=== PATIENT | female | born 1965 | race Caucasian/White ===

== ENCOUNTER → 2017-02-02 | Outpatient (REF) | payer BC ==
[2017-02-02 10:35] LABS: ALBUMIN 3.9 GM/DL (3.2-5.2); ALBUMIN/GLOBULIN RATIO 1.11 (1.00-1.93); ALKALINE PHOSPHATASE 81 U/L (45-117); ALT/SGPT 24 U/L (12-78); ANION GAP 9 MEQ/L (8-16); AST/SGOT 14 U/L (15-37); BILIRUBIN,TOTAL 0.3 MG/DL (0.2-1.0); BLOOD UREA NITROGEN 18 MG/DL (7-18); CALCIUM LEVEL 8.5 MG/DL (8.5-10.1); CARBON DIOXIDE LEVEL 27 MEQ/L (21-32); CHLORIDE LEVEL 104 MEQ/L (98-107); CHOLESTEROL LEVEL 303 MG/DL (<200); CREATININE FOR GFR 0.81 MG/DL (0.55-1.02); GLOMERULAR FILTRATION RATE > 60.0 (>51); GLUCOSE, FASTING 74 MG/DL (70-105); SODIUM LEVEL 140 MEQ/L (136-145); TOTAL PROTEIN 7.4 GM/DL (6.4-8.2); TRIGLYCERIDES LEVEL 346 MG/DL (<150)
== END ==
LOC: M SFHCPLAZ 09:29
PROVIDERS: ATTEND Physician Assistant
DX: E78.4 Other hyperlipidemia (principal); E55.9 Vitamin D deficiency, unspecified; E03.9 Hypothyroidism, unspecified

== ENCOUNTER → 2017-04-30 | Outpatient (REF) | payer BC ==
[2017-04-30 12:13] LABS: ALBUMIN 3.7 GM/DL (3.2-5.2); ALBUMIN/GLOBULIN RATIO 1.19 (1.00-1.93); ALKALINE PHOSPHATASE 69 U/L (45-117); ALT/SGPT 31 U/L (12-78); ANION GAP 8 MEQ/L (8-16); AST/SGOT 16 U/L (15-37); BILIRUBIN,TOTAL 0.3 MG/DL (0.2-1.0); BLOOD UREA NITROGEN 22 MG/DL (7-18); CALCIUM LEVEL 8.5 MG/DL (8.5-10.1); CARBON DIOXIDE LEVEL 25 MEQ/L (21-32); CHLORIDE LEVEL 108 MEQ/L (98-107); CHOLESTEROL LEVEL 185 MG/DL (<200); CREATININE FOR GFR 0.67 MG/DL (0.55-1.02); GLOMERULAR FILTRATION RATE > 60.0 (>51); GLUCOSE, FASTING 83 MG/DL (70-105); POTASSIUM SERUM 4.3 MEQ/L (3.5-5.1); SODIUM LEVEL 141 MEQ/L (136-145); TOTAL PROTEIN 6.8 GM/DL (6.4-8.2); TRIGLYCERIDES LEVEL 132 MG/DL (<150)
== END ==
LOC: M LAB REF 11:20
PROVIDERS: ATTEND Physician Assistant
DX: E78.4 Other hyperlipidemia (principal); E55.9 Vitamin D deficiency, unspecified

== ENCOUNTER → 2017-08-30 | Outpatient (REF) | payer BC ==
[2017-08-30 13:10] LABS: ALBUMIN 3.6 GM/DL (3.2-5.2); ALBUMIN/GLOBULIN RATIO 1.13 (1.00-1.93); ALKALINE PHOSPHATASE 59 U/L (45-117); ALT/SGPT 23 U/L (12-78); ANION GAP 8 MEQ/L (8-16); AST/SGOT 9 U/L (15-37); BILIRUBIN,TOTAL 0.2 MG/DL (0.2-1.0); BLOOD UREA NITROGEN 22 MG/DL (7-18); CALCIUM LEVEL 8.3 MG/DL (8.5-10.1); CARBON DIOXIDE LEVEL 25 MEQ/L (21-32); CHLORIDE LEVEL 106 MEQ/L (98-107); CHOLESTEROL LEVEL 265 MG/DL (<200); CREATININE FOR GFR 0.66 MG/DL (0.55-1.02); GLOMERULAR FILTRATION RATE > 60.0 (>51); GLUCOSE, FASTING 82 MG/DL (70-105); POTASSIUM SERUM 4.4 MEQ/L (3.5-5.1); SODIUM LEVEL 139 MEQ/L (136-145); TOTAL PROTEIN 6.8 GM/DL (6.4-8.2); TRIGLYCERIDES LEVEL 343 MG/DL (<150)
[2017-09-01 00:08] LABS: Lyme Disease IgG/IgM Antibodie <0.91 ISR (0.00-0.90); Lyme Disease IgM Ab Quantitati <0.80 index (0.00-0.79)
== END ==
LOC: M SFHCPLAZ 09:08
PROVIDERS: ATTEND Physician Assistant
DX: E78.4 Other hyperlipidemia (principal); M54.5 Low back pain

== ENCOUNTER → 2017-11-09 | Outpatient (REF) | payer BC ==
[2017-11-09 18:18] LABS: FREE T4 1.11 NG/DL (0.76-1.46)
== END ==
LOC: M SFHCPLAZ 15:39
PROVIDERS: ATTEND Nurse Practitioner Family
DX: E03.9 Hypothyroidism, unspecified (principal)

== ENCOUNTER 2017-12-19 10:02 | Day surgery (SDC) | payer BC ==
[2017-12-19] MEDS ORDERED: NS 1,000 ML IV (11:45)
[2017-12-19] MEDS ORDERED: LIDOCAINE 2% INJ 100 MG/5 ML SDV (FOR ANES.) As Ordered (12:39)
[2017-12-19] MEDS ORDERED: PROPOFOL 200 MG/20 ML VIAL As Ordered (12:39)
== END 2017-12-19 13:52 | disposition home or self-care (01) ==
LOC: M OPP 10:02
DX: Z12.11 Encounter for screening for malignant neoplasm of colon (principal); K64.0 First degree hemorrhoids; D12.6 Benign neoplasm of colon, unspecified; E78.00 Pure hypercholesterolemia, unspecified; E03.9 Hypothyroidism, unspecified; K21.9 Gastro-esophageal reflux disease without esophagitis; R51 Headache; M12.9 Arthropathy, unspecified; L30.8 Other specified dermatitis; L50.8 Other urticaria; Z79.899 Other long term (current) drug therapy; Z88.1 Allergy status to other antibiotic agents; Z91.040 Latex allergy status
CPT/HCPCS: 45385

== ENCOUNTER → 2018-05-01 | Outpatient (REF) | payer BC ==
[2018-05-01 10:39] LABS: ALBUMIN/GLOBULIN RATIO 1.25 (1.00-1.93); ALKALINE PHOSPHATASE 78 U/L (45-117); ALT/SGPT 36 U/L (12-78); ANION GAP 8 MEQ/L (8-16); AST/SGOT 15 U/L (7-37); BILIRUBIN,TOTAL 0.3 MG/DL (0.2-1.0); BLOOD UREA NITROGEN 19 MG/DL (7-18); CALCIUM LEVEL 8.7 MG/DL (8.5-10.1); CARBON DIOXIDE LEVEL 26 MEQ/L (21-32); CHLORIDE LEVEL 108 MEQ/L (98-107); CHOLESTEROL LEVEL 195 MG/DL (<200); CHOLESTEROL RISK RATIO 4.239 (<5); CREATININE FOR GFR 0.77 MG/DL (0.55-1.30); GLOMERULAR FILTRATION RATE > 60.0 (>51); GLUCOSE, FASTING 75 MG/DL (70-100); HDL CHOLESTEROL 46 MG/DL (>40); LDL CHOLESTEROL 105.6 MG/DL (<100); NON-HDL-C 149 MG/DL; SODIUM LEVEL 142 MEQ/L (136-145); THYROID STIMULATING HORMONE 0.456 uIU/ML (0.358-3.740); TOTAL PROTEIN 7.2 GM/DL (6.4-8.2); TRIGLYCERIDES LEVEL 217 MG/DL (<150)
== END ==
LOC: M SFHCPLAZ 09:50
DX: E78.4 Other hyperlipidemia (principal); E03.9 Hypothyroidism, unspecified
CPT/HCPCS: 84443

== ENCOUNTER → 2018-07-31 | Outpatient (REF) | payer BC ==
[2018-08-03 14:10] LABS: HPV HYBRID CAPTURE II Negative (Negative)
== END ==
LOC: M SFHCWAGY 15:43
DX: Z12.4 Encounter for screening for malignant neoplasm of cervix (principal)
CPT/HCPCS: G0123

== ENCOUNTER → 2018-07-31 | Outpatient (CLI) | payer BC | LOC: M WHC 14:52 | DX: Z12.31 Encounter for screening mammogram for malignant neoplasm of breast (principal); N60.31 Fibrosclerosis of right breast; N60.32 Fibrosclerosis of left breast | CPT/HCPCS: 77067 ==

== ENCOUNTER → 2018-11-04 | Outpatient (REF) | payer BC | LOC: M SFHCPLAZ 16:09 | DX: Z53.9 Procedure and treatment not carried out, unspecified reason (principal); E03.9 Hypothyroidism, unspecified; E78.49 Other hyperlipidemia ==

== ENCOUNTER → 2018-11-15 | Outpatient (REF) | payer BC ==
[~2018-11-15] MED LIST: ATOR1TAB21 PO; FLUTISP; HYDR-3363 PO; IBUP200T45 PO; LEVO100T5 PO; PROAAER10 INH
[2018-11-15 13:12] LABS: ALBUMIN 3.5 GM/DL (3.2-5.2); ALT/SGPT 33 U/L (12-78); BILIRUBIN,TOTAL 0.2 MG/DL (0.2-1.0); BLOOD UREA NITROGEN 21 MG/DL (7-18); CALCIUM LEVEL 8.5 MG/DL (8.5-10.1); CARBON DIOXIDE LEVEL 23 MEQ/L (21-32); CHLORIDE LEVEL 104 MEQ/L (98-107); CREATININE FOR GFR 0.88 MG/DL (0.55-1.30); FREE T4 1.06 NG/DL (0.76-1.46); GLOMERULAR FILTRATION RATE > 60.0 (>51); GLUCOSE, FASTING 80 MG/DL (70-100); POTASSIUM SERUM 3.9 MEQ/L (3.5-5.1); SODIUM LEVEL 138 MEQ/L (136-145)
== END ==
LOC: M LABDRWAD 12:13
PROVIDERS: ATTEND Nurse Practitioner Family
DX: E03.9 Hypothyroidism, unspecified (principal)

== ENCOUNTER → 2019-06-21 | Outpatient (REF) | payer BC ==
[2019-06-21 09:13] LABS: ALBUMIN 3.7 GM/DL (3.2-5.2); ALT/SGPT 27 U/L (12-78); BILIRUBIN,TOTAL 0.2 MG/DL (0.2-1.0); BLOOD UREA NITROGEN 25 MG/DL (7-18); CALCIUM LEVEL 8.8 MG/DL (8.5-10.1); CARBON DIOXIDE LEVEL 31 MEQ/L (21-32); CHLORIDE LEVEL 104 MEQ/L (98-107); CHOLESTEROL LEVEL 239 MG/DL (<200); CHOLESTEROL RISK RATIO 5.829 (<5); CREATININE FOR GFR 0.82 MG/DL (0.55-1.30); FREE T4 1.18 NG/DL (0.76-1.46); GLOMERULAR FILTRATION RATE > 60.0 (>51); GLUCOSE, FASTING 79 MG/DL (70-100); HDL CHOLESTEROL 41 MG/DL (>40); NON-HDL-C 198 MG/DL; POTASSIUM SERUM 4.1 MEQ/L (3.5-5.1); SODIUM LEVEL 140 MEQ/L (136-145); TOTAL PROTEIN 7.4 GM/DL (6.4-8.2); TRIGLYCERIDES LEVEL 445 MG/DL (<150)
== END ==
LOC: M LAB REF 08:47
PROVIDERS: ATTEND Nurse Practitioner Family
DX: E78.49 Other hyperlipidemia (principal); E03.9 Hypothyroidism, unspecified

== ENCOUNTER → 2019-08-01 | Outpatient (REF) | payer BC | LOC: M LAB REF 10:31 | PROVIDERS: ATTEND Nurse Practitioner Family | DX: E03.9 Hypothyroidism, unspecified (principal) ==

== ENCOUNTER → 2019-12-24 | Outpatient (REF) | payer BC ==
[2019-12-24 15:59] LABS: HEMATOCRIT 34.1 % (36.0-47.0); HEMOGLOBIN 10.6 g/dl (12.0-15.5); MEAN CORPUSCULAR HEMOGLOBIN 25.1 pg (27.0-33.0); MEAN CORPUSCULAR HGB CONC 31.1 g/dl (32.0-36.5); MEAN CORPUSCULAR VOLUME 80.8 fl (80.0-96.0); PLATELET COUNT, AUTOMATED 285 10^3/uL (150-450); RED BLOOD COUNT 4.22 10^6/uL (4.00-5.40); WHITE BLOOD COUNT 6.2 10^3/uL (4.0-10.0)
[2019-12-24 16:25] LABS: CREATININE FOR GFR 1.1 MG/DL (0.55-1.30); GLOMERULAR FILTRATION RATE 55.1 (>51)
== END ==
LOC: M SFHCPLAZ 14:14
PROVIDERS: ATTEND Family Medicine
DX: Z01.818 Encounter for other preprocedural examination (principal)

== ENCOUNTER → 2019-12-29 | Outpatient (CLI) | payer BC ==
[~2019-12-29] MED LIST changes: +HYDR-3713 PO; +OMEP40CA97 PO
[2019-12-29 12:25] LABS: HEMATOCRIT 37.7 % (36.0-47.0); HEMOGLOBIN 11.6 g/dl (12.0-15.5); MEAN CORPUSCULAR HEMOGLOBIN 24.9 pg (27.0-33.0); MEAN CORPUSCULAR HGB CONC 30.8 g/dl (32.0-36.5); MEAN CORPUSCULAR VOLUME 80.9 fl (80.0-96.0); PLATELET COUNT, AUTOMATED 302 10^3/uL (150-450); RED BLOOD COUNT 4.66 10^6/uL (4.00-5.40); WHITE BLOOD COUNT 5.6 10^3/uL (4.0-10.0)
[2019-12-29 12:26] LABS: HEMATOCRIT 38.3 % (36.0-47.0)
[2019-12-29 12:30] LABS: BLOOD UREA NITROGEN 19 MG/DL (7-18); CALCIUM LEVEL 9.5 MG/DL (8.5-10.1); CARBON DIOXIDE LEVEL 31 MEQ/L (21-32); CHLORIDE LEVEL 106 MEQ/L (98-107); CREATININE FOR GFR 0.74 MG/DL (0.55-1.30); FERRITIN 7 NG/ML (8-252); GLOMERULAR FILTRATION RATE > 60.0 (>51); GLUCOSE, FASTING 94 MG/DL (70-100); IRON (FE) 30 UG/DL (50-170); PERCENT SATURATION 6.1 % (13.2-45.0); POTASSIUM SERUM 4.3 MEQ/L (3.5-5.1); SODIUM LEVEL 142 MEQ/L (136-145); TOTAL IRON BINDING CAPACITY 490 UG/DL (250-450)
[2019-12-29 12:36] LABS: VITAMIN B12 LEVEL 852 PG/ML (247-911)
== END ==
LOC: M PLALAB 09:53
PROVIDERS: ATTEND Family Medicine
DX: D64.9 Anemia, unspecified (principal); R94.4 Abnormal results of kidney function studies

== ENCOUNTER 2019-12-31 05:51 | Day surgery (SDC) | payer BC ==
[~2019-12-31] VITALS: Ht 162.6 cm; Wt 74.8 kg
[~2019-12-31 05:51] MED LIST changes: -HYDR-3713 PO; -OMEP40CA97 PO
[2019-12-31] MEDS ORDERED: ceFAZolin SOD 2 GM in IV 1 EA IV ONE (06:00)
[2019-12-31] MEDS ORDERED: LIDOCAINE 1% MDV 20ML VIAL SQ PRN (06:00)
[2019-12-31] MEDS ORDERED: LR 1,000 ML IV ONE (06:00)
[2019-12-31] MEDS ORDERED: OMEP40CA97 PO (07:04)
[2019-12-31] MEDS ORDERED: LIDOCAINE 1% MDV 20ML VIAL As Ordered ONE (07:12)
[2019-12-31] MEDS ORDERED: dexameTHASONE 4 MG/ML 1ML VIAL (J1100) As Ordered ONE ×3 (07:12→08:02)
[2019-12-31] MEDS ORDERED: BUPIVACAINE HCL 0.5% 10 ML VIAL As Ordered ONE (07:12)
[2019-12-31] MEDS ORDERED: TRIAMCINOLONE ACETONIDE SUSP 40 MG/ML VIAL (J3301) As Ordered ONE ×2 (07:42→07:43)
[2019-12-31] MEDS ORDERED: LIDOCAINE 2% INJ 100 MG/5 ML SDV (FOR ANES.) As Ordered ONE (08:02)
[2019-12-31] MEDS ORDERED: ONDANSETRON 4MG/2ML VIAL (J2405) As Ordered ONE (08:02)
[2019-12-31] MEDS ORDERED: MIDAZOLAM INJ 2 MG/2 ML VIAL (J2250) As Ordered ONE (08:02)
[2019-12-31] MEDS ORDERED: fentaNYL 100 MCG/2 ML INJECTION (J3010) As Ordered ONE (08:02)
[2019-12-31] MEDS ORDERED: KETOROLAC 60 MG/2 ML VIAL (J1885) As Ordered ONE (08:02)
[2019-12-31] MEDS ORDERED: propofoL 200 MG/20 ML VIAL As Ordered ONE ×2 (08:02→08:33)
[2019-12-31] MEDS ORDERED: HYDR-3713 PO (08:49)
[2019-12-31 09:40] VITALS: BP 123/58
--- NOTE | 2019-12-31 11:10 | RO ---
DATE OF SURGERY: 12/31/2019 SURGEON: Otis Root DPM ROUTING MACHINE OPERATOR: None. PREOPERATIVE DIAGNOSES: Right foot bunion hallux valgus and plantar fasciitis. POSTOPERATIVE DIAGNOSES: Right foot bunion hallux valgus and plantar fasciitis. PROCEDURE: Right foot bunionectomy and first metatarsal osteotomy, Drew osteotomy and bilateral heel injections. ANESTHESIA: Monitored anesthesia care with preop injection of 16 mL of 1:1 mixture of 1% lidocaine plain, 0.5% Marcaine plain. ESTIMATED BLOOD LOSS: Minimal. MATERIALS: Arthrex 3.5 headless compression screw. Arthrex DynaNite staple. #3-0 and #4-0 Vicryl, #4-0 nylon. INJECTABLES: 2 mL Decadron 4 mg/mL and 2 mL of Kenalog 40. COMPLICATIONS: None. CONDITION: Stable. Honey Stringer is a 54-year-old female who presents to [facility] with complaints of painful bunion and bilateral heel pain. She presents today for surgical correction. The patient's site and side were identified and marked in the preop holding area. Consent was reviewed and obtained. All risks, complications and alternatives to the procedure were explained to the patient in detail and all questions were answered. PROCEDURE: Patient was brought to the operating room and placed operating room table in supine position. Monitored anesthesia care was delivered by the anesthesia team. Preop injection of 16 mL of 1:1 mixture of 1% lidocaine plain and 0.5% Marcaine plain were injected to the right foot. The right foot was prepped and draped in a normal sterile fashion. Tourniquet was applied to the right ankle and inflated to 215 mmHg. A dorsal incision was drawn and carried through with a #15 blade. Dissection was carried down and the first metatarsal phalangeal joint capsule was identified. Bovie was used to cauterize small bleeding vessels along the way. A T-capsulotomy was performed exposing the metatarsal head. Over this, a lateral release was performed releasing the adductor tendon, lateral capsule and sesamoidal ligaments. McGlamry elevator was used to release the plantar structures. Following this, the medial head of the metatarsal bone was resected with saggital saw and osteotomy was performed of the metatarsal head transposing it laterally. This was fixated with an Arthrex 3.5 headless compression screw. Remaining bone ledge was removed with sagittal saw and smoothed with a rasp. Site was irrigated with normal saline. Attention was then paid to the proximal phalanx. A small wedge of cortex was removed from the medial cortex and the toe was fixated with an Arthrex DynaNite staple effectively placing the toe into a more medial position. The site was then irrigated with normal saline. A small wedge of capsule was removed from the medial capsule. A capsular repair was then performed with #3-0 Vicryl, subcutaneous was closed with #4-0 Vicryl and the skin was closed with #4-0 nylon. Following this, heel injections were performed putting 1 mL of Decadron and 1 mL of Kenalog into both heels. Sterile dressing was applied, tourniquet was deflated and the patient was brought to the postanesthesia care unit (PACU) with vital signs stable and neurovascular status intact. She will be partial weightbearing. She will followup in the office in two days.
== END 2019-12-31 10:23 | disposition home or self-care (01) ==
LOC: M SDC 05:51
PROVIDERS: ATTEND Podiatrist Foot & Ankle Surgery
DX: M20.11 Hallux valgus (acquired), right foot (principal); M72.2 Plantar fascial fibromatosis; E03.9 Hypothyroidism, unspecified; E78.5 Hyperlipidemia, unspecified; Z79.899 Other long term (current) drug therapy; Z88.1 Allergy status to other antibiotic agents; Z87.891 Personal history of nicotine dependence
CPT/HCPCS: 20550; 28296; 28298; 88300; 97116; C1713; J0690; J1100; J1885; J2250; J2405; J3010; J3301

== ENCOUNTER → 2020-05-01 | Outpatient (CLI) | payer BC ==
[~2020-05-01] MED LIST changes: +HYDR-3713 PO; +OMEP40CA97 PO
== END ==
LOC: M LABSMTC 08:08
PROVIDERS: ATTEND Anesthesiology
DX: Z01.818 Encounter for other preprocedural examination (principal); Z11.59 Encounter for screening for other viral diseases
CPT/HCPCS: C9803; U0003

== ENCOUNTER 2020-05-04 06:54 | Day surgery (SDC) | payer BC ==
[~2020-05-04] VITALS: Ht 162.6 cm; Wt 73.0 kg
[2020-05-04] MEDS ORDERED: NS 1,000 ML IV ONE (07:00)
[2020-05-04] MEDS ORDERED: LIDOCAINE 2% MDV 20ML VIAL As Ordered ONE (07:24)
[2020-05-04] MEDS ORDERED: propofoL 200 MG/20 ML VIAL As Ordered ONE (07:24)
[2020-05-04] MEDS ORDERED: fentaNYL 100 MCG/2 ML INJECTION (J3010) As Ordered ONE (07:24)
--- NOTE | 2020-05-04 07:49 | ROOR ---
Patient Name: Honey Stringer Procedure Date: 05/04/2020 7:31 AM Date of : 1965 Age: 54 Room: [facility] Gender: Female Note Status: Finalized Procedure: Upper Endoscopy + Biopsies Indications: Iron deficiency anemia Providers: Suman Whitten MD Referring MD: Mary Morales MD Requesting Provider: Medicines: Monitored Anesthesia Care Complications: No immediate complications. Procedure: Pre-Anesthesia Assessment: - The heart rate, respiratory rate, oxygen saturations, blood pressure, adequacy of pulmonary ventilation, and response to care were monitored throughout the procedure. The Endoscope was introduced through the mouth, and advanced to the second part of duodenum. The upper GI endoscopy was accomplished without difficulty. The patient tolerated the procedure well. Findings: The Z-line was variable and was found 40 cm from the incisors. Multiple biopsies were obtained with cold forceps for evaluation to rule out Cornell's Esophagus randomly at the gastroesophageal junction. A small hiatal hernia was present. No other significant abnormalities were identified in a careful examination of the stomach. Biopsies were taken with a cold forceps in the gastric antrum for Helicobacter pylori testing. The exam of the duodenum was otherwise normal. Biopsies for histology were taken with a cold forceps in the first portion of the duodenum for evaluation of celiac disease. The exam was otherwise without abnormality. Impression: - Z-line variable, 40 cm from the incisors. - Small hiatal hernia. - The examination was otherwise normal. - Multiple biopsies were obtained at the gastroesophageal junction. - Biopsies were taken with a cold forceps for Helicobacter pylori testing. - Biopsies were taken with a cold forceps for evaluation of celiac disease. - The examination was otherwise normal. Recommendation: - Patient has a contact number available for emergencies. The signs and symptoms of potential delayed complications were discussed with the patient. Return to normal activities tomorrow. Written discharge instructions were provided to the patient. - High fiber diet. - Discharge patient to home. - Continue present medications. - Await pathology results. - Telephone GI clinic for pathology results in 1 week. - Return to referring physician. - The findings and recommendations were discussed with the patient's family. Suman Whitten MD Suman Whitten MD 05/04/2020 7:49:41 AM Electronically signed by Suman Whitten MD Number of Addenda: 0 Note Initiated On: 05/04/2020 7:31 AM Estimated Blood Loss: Estimated blood loss: none.
[2020-05-04] MEDS ORDERED: LIDOCAINE 2% 100MG/5ML SDV (FOR ANES.) As Ordered ONE (08:04)
--- NOTE | 2020-05-04 08:08 | ROOR ---
Patient Name: Honey Stringer Procedure Date: 05/04/2020 7:32 AM Date of : 1965 Age: 54 Room: [facility] Gender: Female Note Status: Finalized Procedure: Total Colonoscopy to Cecum + ileoscopy Indications: Unexplained iron deficiency anemia Providers: Suman Whitten MD Referring MD: Mary Morales MD Requesting Provider: Medicines: Monitored Anesthesia Care Complications: No immediate complications. Procedure: Pre-Anesthesia Assessment: - The heart rate, respiratory rate, oxygen saturations, blood pressure, adequacy of pulmonary ventilation, and response to care were monitored throughout the procedure. The Colonoscope was introduced through the anus and advanced to the cecum, identified by appendiceal orifice and ileocecal valve. The colonoscopy was performed without difficulty. The patient tolerated the procedure well. The quality of the bowel preparation was excellent. Findings: The perianal and digital rectal examinations were normal. Internal hemorrhoids were found during retroflexion. The hemorrhoids were small and Grade I (internal hemorrhoids that do not prolapse). Scattered small-mouthed diverticula were found in the recto-sigmoid colon, sigmoid colon and descending colon. The exam was otherwise without abnormality on direct and retroflexion views. The terminal ileum appeared normal. Impression: - Internal hemorrhoids. - Diverticulosis in the recto-sigmoid colon, in the sigmoid colon and in the descending colon. - The examination was otherwise normal on direct and retroflexion views. - The examined portion of the ileum was normal. - No specimens collected. - The exam was otherwise normal to the cecum. Recommendation: - Patient has a contact number available for emergencies. The signs and symptoms of potential delayed complications were discussed with the patient. Return to normal activities tomorrow. Written discharge instructions were provided to the patient. - High fiber diet. - Discharge patient to home. - Continue present medications. - Repeat colonoscopy in 10 years for screening purposes. - Return to referring physician. - The findings and recommendations were discussed with the patient's family. Suman Whitten MD Suman Whitten MD 05/04/2020 8:07:54 AM Electronically signed by Suman Whitten MD Number of Addenda: 0 Note Initiated On: 05/04/2020 7:32 AM Estimated Blood Loss: Estimated blood loss: none.
[2020-05-04 08:34] VITALS: BP 116/66
== END 2020-05-04 08:30 | disposition home or self-care (01) ==
LOC: M OPP 06:54
PROVIDERS: ATTEND Internal Medicine Gastroenterology
DX: K57.30 Diverticulosis of large intestine without perforation or abscess without bleeding (principal); K64.0 First degree hemorrhoids; D50.9 Iron deficiency anemia, unspecified; K22.8 Other specified diseases of esophagus; K44.9 Diaphragmatic hernia without obstruction or gangrene
CPT/HCPCS: 43239; 45378; 88305; J3010

== ENCOUNTER → 2020-05-25 | Outpatient (REF) | payer BC ==
[2020-05-25 11:57] LABS: HEMATOCRIT 39.6 % (36.0-47.0); HEMOGLOBIN 12.1 g/dl (12.0-15.5); MEAN CORPUSCULAR HEMOGLOBIN 25.6 pg (27.0-33.0); MEAN CORPUSCULAR HGB CONC 30.6 g/dl (32.0-36.5); MEAN CORPUSCULAR VOLUME 83.9 fl (80.0-96.0); PLATELET COUNT, AUTOMATED 296 10^3/uL (150-450); RED BLOOD COUNT 4.72 10^6/uL (4.00-5.40); WHITE BLOOD COUNT 5.5 10^3/uL (4.0-10.0)
[2020-05-25 12:45] LABS: ALBUMIN 3.9 GM/DL (3.2-5.2); ALT/SGPT 43 U/L (12-78); BILIRUBIN,TOTAL 0.3 MG/DL (0.2-1.0); BLOOD UREA NITROGEN 20 MG/DL (7-18); CALCIUM LEVEL 9.5 MG/DL (8.5-10.1); CARBON DIOXIDE LEVEL 28 MEQ/L (21-32); CHLORIDE LEVEL 105 MEQ/L (98-107); CHOLESTEROL LEVEL 216 MG/DL (<200); CHOLESTEROL RISK RATIO 4.235 (<5); CREATININE FOR GFR 0.74 MG/DL (0.55-1.30); FERRITIN 9 NG/ML (8-252); GLOMERULAR FILTRATION RATE > 60.0 (>51); GLUCOSE, FASTING 95 MG/DL (70-100); HDL CHOLESTEROL 51 MG/DL (>40); IRON (FE) 44 UG/DL (50-170); LDL CHOLESTEROL 138 MG/DL (<100); NON-HDL-C 165 MG/DL; PERCENT SATURATION 9.1 % (13.2-45.0); POTASSIUM SERUM 4.7 MEQ/L (3.5-5.1); SODIUM LEVEL 137 MEQ/L (136-145); THYROID STIMULATING HORMONE 0.338 uIU/ML (0.358-3.740); TOTAL IRON BINDING CAPACITY 481 UG/DL (250-450); TOTAL PROTEIN 7.4 GM/DL (6.4-8.2); TRIGLYCERIDES LEVEL 137 MG/DL (<150)
== END ==
LOC: M SFHCPLAZ 09:55
PROVIDERS: ATTEND Family Medicine
DX: Z86.2 Personal history of diseases of the blood and blood-forming organs and certain disorders involving the immune mechanism (principal); E78.2 Mixed hyperlipidemia; E03.9 Hypothyroidism, unspecified

== ENCOUNTER → 2020-10-12 | Outpatient (CLI) | payer BC | LOC: M LABSMTC 12:01 | PROVIDERS: ATTEND Family Medicine | DX: Z20.828 Contact with and (suspected) exposure to other viral communicable diseases (principal) ==

== ENCOUNTER → 2020-11-23 | Outpatient (REF) | payer BC ==
[2020-11-23 14:52] LABS: CHOLESTEROL RISK RATIO 7.666 (<5); THYROID STIMULATING HORMONE 1.68 uIU/ML (0.358-3.740)
== END ==
LOC: M PLALAB 09:21
PROVIDERS: ATTEND Family Medicine
DX: E78.2 Mixed hyperlipidemia (principal); E03.9 Hypothyroidism, unspecified

== ENCOUNTER → 2020-12-05 | Outpatient (REF) | payer SELFPAY | LOC: M LABSMTC 11:02 → EDSTATUS 11:15 | PROVIDERS: ATTEND Pediatrics | DX: Z20.822 Contact with and (suspected) exposure to COVID-19 (principal) ==

== ENCOUNTER → 2020-12-09 | Outpatient (REF) | payer SELFPAY | LOC: M LABSMTC 09:46 → EDSTATUS 09:50 | PROVIDERS: ATTEND Pediatrics | DX: Z20.822 Contact with and (suspected) exposure to COVID-19 (principal) ==

== ENCOUNTER → 2020-12-20 | Outpatient (REF) | payer BC ==
[2020-12-20 18:01] LABS: HEMATOCRIT 35.4 % (36.0-47.0); HEMOGLOBIN 11.8 g/dl (12.0-15.5); MEAN CORPUSCULAR HEMOGLOBIN 28.4 pg (27.0-33.0); MEAN CORPUSCULAR HGB CONC 33.3 g/dl (32.0-36.5); MEAN CORPUSCULAR VOLUME 85.1 fl (80.0-96.0); PLATELET COUNT, AUTOMATED 243 10^3/uL (150-450); RED BLOOD COUNT 4.16 10^6/uL (4.00-5.40); WHITE BLOOD COUNT 6.4 10^3/uL (4.0-10.0)
[2020-12-20 18:35] LABS: BLOOD UREA NITROGEN 24 MG/DL (7-18); CALCIUM LEVEL 9.1 MG/DL (8.5-10.1); CARBON DIOXIDE LEVEL 28 MEQ/L (21-32); CHLORIDE LEVEL 106 MEQ/L (98-107); CREATININE FOR GFR 0.96 MG/DL (0.55-1.30); FERRITIN 24 NG/ML (8-252); GLOMERULAR FILTRATION RATE > 60.0 (>51); GLUCOSE, FASTING 89 MG/DL (70-100); IRON (FE) 118 UG/DL (50-170); PERCENT SATURATION 30.8 % (13.2-45.0); POTASSIUM SERUM 3.9 MEQ/L (3.5-5.1); SODIUM LEVEL 138 MEQ/L (136-145); TOTAL IRON BINDING CAPACITY 383 UG/DL (250-450)
== END ==
LOC: M SFHCPLAZ 14:38
PROVIDERS: ATTEND Family Medicine
DX: Z01.818 Encounter for other preprocedural examination (principal); Z86.2 Personal history of diseases of the blood and blood-forming organs and certain disorders involving the immune mechanism

== ENCOUNTER → 2021-01-11 | Outpatient (CLI) | payer BC | LOC: M LABSMTC 08:00 | PROVIDERS: ATTEND Anesthesiology | DX: Z01.812 Encounter for preprocedural laboratory examination (principal); Z20.822 Contact with and (suspected) exposure to COVID-19 ==

== ENCOUNTER 2021-01-12 09:14 | Day surgery (SDC) | payer BC ==
[~2021-01-12] VITALS: Ht 162.6 cm; Wt 77.1 kg
[~2021-01-12 09:14] MED LIST changes: +BUPIVACAINE HCL 0.5% 10ML VIAL As Ordered ONE; +LIDOCAINE 1% MDV 20ML VIAL As Ordered ONE; +LR 1,000 ML IV ONE; +ceFAZolin SOD 2 GM in IV 1 EA IV ONE; +dexameTHASONE 4 MG/ML 1ML VIAL (J1100 PER 1MG) As Ordered ONE
[2021-01-12] MEDS ORDERED: LIDOCAINE 2% 100MG/5ML SDV (FOR ANES.) As Ordered ONE (10:48)
[2021-01-12] MEDS ORDERED: ONDANSETRON 4MG/2ML VIAL As Ordered ONE (10:48)
[2021-01-12] MEDS ORDERED: propofoL 500 MG/50 ML VIAL As Ordered ONE (10:48)
[2021-01-12] MEDS ORDERED: fentaNYL 100 MCG/2 ML INJECTION (J3010) As Ordered ONE (10:49)
[2021-01-12] MEDS ORDERED: MIDAZOLAM INJ 2MG/2ML VIAL (J2250 PER 1MG) As Ordered ONE (10:49)
[2021-01-12] MEDS ORDERED: BUPIVACAINE HCL 0.5% 10ML VIAL As Ordered ONE (11:38)
[2021-01-12] MEDS ORDERED: PHENYLephrine 500MCG 5ML (100MCG/ML) SYRINGE As Ordered ONE ×2 (12:01→12:36)
[2021-01-12] MEDS ORDERED: propofoL 200 MG/20 ML VIAL As Ordered ONE (12:48)
[2021-01-12] MEDS ORDERED: ONDANSETRON 4MG/2ML VIAL IV PRN (13:45)
[2021-01-12] MEDS ORDERED: LR 1,000 ML IV SCH (13:45)
[2021-01-12] MEDS: oxyCODONE 5MG TAB PO PRN ×2 (13:45→14:31)
[2021-01-12] MEDS ORDERED: fentaNYL 100 MCG/2 ML INJECTION (J3010) IV PRN (13:45)
[2021-01-12] MEDS ORDERED: HYDROMORPHONE HCL 0.5 MG/ 0.5 ML SYRINGE (J1170 PER 1) IV PRN (13:45)
--- NOTE | 2021-01-12 13:45 | RO ---
OPERATIVE NOTE DATE OF OPERATION: 01/12/2021 PREOPERATIVE DIAGNOSIS: Bilateral plantar fasciitis and right foot painful retained hardware. POSTOPERATIVE DIAGNOSIS: Bilateral plantar fasciitis and right foot painful retained hardware. PROCEDURE: Bilateral endoscopic plantar fascial release; right foot hardware removal. SURGEON: Otis Root DPM BUSINESS ADMINISTRATION TEACHER: None. ANESTHESIA: Monitored anesthesia care, preop injection of 30 mL of 1:1 mix of 1% Lidocaine plain and 0.5% Marcaine plain. ESTIMATED BLOOD LOSS: Minimal. MATERIALS: 3-0 and 4-0 Vicryl, 4-0 nylon. INJECTABLES: None. COMPLICATIONS: None. CONDITION: Stable. INDICATIONS: Honey Stringer is a 55-year-old female with chronic plantar fasciitis which has been resistant to conservative treatment as well as painful retained hardware following a bunion procedure. She presents today for surgical correction. The patient's site and side were identified and marked in preoperative area. Consent was reviewed and obtained. Risks, complications and alternatives to the procedure explained to the patient in detail and all questions were answered. DESCRIPTION OF PROCEDURE: The patient was brought to the operating room and placed on the operating table in supine position. Monitored anesthesia care was delivered by the anesthesia team. Preop injection of 30 mL of 1:1 mix of 1% Lidocaine plain and 0.5% Marcaine plain was injected in both feet. Both feet were prepped and draped in normal sterile fashion. Tourniquets were applied to both ankles and inflated to 250 mmHg. Attention was first paid to the right bunion. Dorsal incision was made over the previous scar and carried down with #15 blade. Dissection was carried down to the bone and the screw and staple were identified. The staple was removed using pliers and the screw was removed using the Arthrex screwdriver. Some prominent bone was smoothed using sagittal saw and rasp and this site was irrigated with normal saline. Closure was performed with 3-0 and 4-0 Vicryl and 4-0 nylon. Attention was paid to the heels. A medial portal on each heel was created with #15 blade. The inferior margin of the plantar fascia was identified and the trocar and cannula were inserted. Narrow portal was created on the lateral aspect of the heel. The camera was inserted. Plantar fascia was visualized on both feet and under visualization the medial two-thirds of the plantar fascia were released using the plantar fascia blade leaving the lateral one-third intact. The sites were irrigated with normal saline. The incisions were repaired with 4-0 nylon following the camera and trocar removal. Sterile dressings were applied. Tourniquets were deflated. The patient was taken to PACU, vital signs stable, neurovascular status intact. She will be partial weightbearing. She will follow up in the office in two days.
[2021-01-12 13:50] VITALS: BP 130/74
--- NOTE | 2021-01-13 15:49 | ECGEPIP ---
[facility] Test Date: 2021-01-12 Pat Name: SHAI GAYLE Department: Room: - Gender: Female Senior Technical Business Analyst: rf : 1965 Requested By: NIDA DAWKINS Order Number: [id number] Reading MD: Larry Colvin Measurements Intervals [place] Rate: 68 P: 34 DC: 164 QRS: 31 QRSD: 78 T: 7 QT: 410 QTc: 435 Interpretive Statements Normal sinus rhythm Normal EKG Comparison tracing not on file Electronically Signed on 01-13-2021 15:49:29 EST by Larry Colvin
== END 2021-01-12 15:05 | disposition home or self-care (01) ==
LOC: M SDC 09:14
PROVIDERS: ATTEND Podiatrist Foot & Ankle Surgery
DX: M72.2 Plantar fascial fibromatosis (principal); E03.9 Hypothyroidism, unspecified; E78.2 Mixed hyperlipidemia; J45.909 Unspecified asthma, uncomplicated; K21.9 Gastro-esophageal reflux disease without esophagitis; R06.83 Snoring; Z79.899 Other long term (current) drug therapy; Z86.2 Personal history of diseases of the blood and blood-forming organs and certain disorders involving the immune mechanism; Z87.891 Personal history of nicotine dependence; Z88.1 Allergy status to other antibiotic agents; Z98.51 Tubal ligation status
CPT/HCPCS: 20680; 29893; 88300; 93005; J0690; J2250; J2370; J2405; J3010

== ENCOUNTER → 2021-07-11 | Outpatient (CLI) | payer BC ==
[~2021-07-11] MED LIST changes: -BUPIVACAINE HCL 0.5% 10ML VIAL As Ordered ONE; -LIDOCAINE 1% MDV 20ML VIAL As Ordered ONE; -LR 1,000 ML IV ONE; +OMEP40CA4 PO; -OMEP40CA97 PO; -ceFAZolin SOD 2 GM in IV 1 EA IV ONE; -dexameTHASONE 4 MG/ML 1ML VIAL (J1100 PER 1MG) As Ordered ONE
--- NOTE | 2021-07-11 16:08 | REPMRS ---
Patient History The patient states she had a clinical breast exam in June 2021. Patient is postmenopausal. Family history of ovarian cancer in maternal grandmother. Benign stereotactic core biopsy of the left breast, March 30, 2008. No Hormone Replacement Therapy Patient states no breast complaints today. Patient has signed MRS History Sheet. Digital Woman Screen Mammo: July 11, 2021 - Exam #: [id number] Bilateral CC and MLO view(s) were taken. Technologist: Michelle Li, Technologist Prior study comparison: July 31, 2018, bilateral digital woman screen mammo performed at [facility]. August 30, 2016, digital woman screen mammo performed at [facility]. FINDINGS: There are scattered fibroglandular densities. Screening. Digital screening (2D) mammography was performed bilaterally in the CC and MLO projections. Additionally, breast tomosynthesis (3D mammography) was performed bilaterally in the CC and MLO projections. Todays exam was compared to the prior exam/exams. By history, the patient has no complaints of a palpable breast abnormality or other significant breast complaints. The breasts are unchanged in size and shape. There are no raysa-soft tissue densities or spiculated masses. There is no internal architectural distortion. There are no suspicious raysa-calcific clusters. Skin thickening or nipple retraction is not present. IMPRESSION: BI-RADS Category 2- Benign Findings. There is no evidence of malignant alteration of the breasts. Followup examination recommended in one year. The Volpara volumetric breast density category is B, there are scattered areas of fibroglandular densities. This mammogram was read with the assistance of [employer],an FDA approved computer aided detection system for mammography. The lifetime Tyrer-Cuzick score is 8 % Negative x-ray reports should not delay surgical consultation if a dominant or clinically suspicious mass is present. Not all breast cancers can be identified by mammography. Therefore, we recommend that you continue to perform regular breast self-examination and physical examination and then promptly contact your physician of any concerns or changes. Adenosis and dense breasts may obscure an underlying neoplasm. Assessment: BI-RADS/ACR category 2 mammogram. Benign Findings. Recommendation Routine screening mammogram of both breasts in 1 year. Electronically Signed By: Alban Umaña DO 07/11/21 [id number]
== END ==
LOC: M WHC 14:49
PROVIDERS: ATTEND Nurse Practitioner Women's Health
DX: Z12.31 Encounter for screening mammogram for malignant neoplasm of breast (principal)

== ENCOUNTER → 2021-07-11 | Outpatient (REF) | payer BC | LOC: M SFHCWAGY 18:57 | PROVIDERS: ATTEND Nurse Practitioner Women's Health | DX: Z12.4 Encounter for screening for malignant neoplasm of cervix (principal) | CPT/HCPCS: 87624; G0123 ==

== ENCOUNTER → 2022-02-20 | Outpatient (CLI) | payer BC ==
[~2022-02-20] MED LIST changes: -IBUP200T45 PO; +IBUP200T46 PO
[2022-02-20 10:30] LABS: HEMATOCRIT 42.8 % (36.0-47.0); HEMOGLOBIN 14.4 g/dl (12.0-15.5); MEAN CORPUSCULAR HEMOGLOBIN 29.6 pg (27.0-33.0); MEAN CORPUSCULAR HGB CONC 33.6 g/dl (32.0-36.5); MEAN CORPUSCULAR VOLUME 88.1 fl (80.0-96.0); PLATELET COUNT, AUTOMATED 289 10^3/uL (150-450); RED BLOOD COUNT 4.86 10^6/uL (4.00-5.40)
[2022-02-20 11:05] LABS: ALBUMIN 4.2 GM/DL (3.2-5.2); ALT/SGPT 35 U/L (12-78); BILIRUBIN,TOTAL 0.3 MG/DL (0.2-1.0); BLOOD UREA NITROGEN 23 MG/DL (7-18); CALCIUM LEVEL 9.4 MG/DL (8.5-10.1); CARBON DIOXIDE LEVEL 32 MEQ/L (21-32); CHLORIDE LEVEL 109 MEQ/L (98-107); CHOLESTEROL LEVEL 134 MG/DL (<200); CHOLESTEROL RISK RATIO 2.481 (<5); CREATININE FOR GFR 0.95 MG/DL (0.55-1.30); FERRITIN 28 NG/ML (8-252); GLOMERULAR FILTRATION RATE > 60.0 (>51); GLUCOSE, FASTING 98 MG/DL (70-100); HDL CHOLESTEROL 54 MG/DL (>40); IRON (FE) 98 UG/DL (50-170); LDL CHOLESTEROL 45 MG/DL (<100); NON-HDL-C 80 MG/DL; PERCENT SATURATION 24.1 % (13.2-45.0); POTASSIUM SERUM 4.5 MEQ/L (3.5-5.1); SODIUM LEVEL 143 MEQ/L (136-145); TOTAL IRON BINDING CAPACITY 407 UG/DL (250-450); TOTAL PROTEIN 7.4 GM/DL (6.4-8.2); TRIGLYCERIDES LEVEL 175 MG/DL (<150)
== END ==
LOC: M PLALAB 08:16
PROVIDERS: ATTEND Family Medicine
DX: E03.9 Hypothyroidism, unspecified (principal); E78.2 Mixed hyperlipidemia; Z86.2 Personal history of diseases of the blood and blood-forming organs and certain disorders involving the immune mechanism

== ENCOUNTER → 2022-03-24 | Outpatient (CLI) | payer BC | LOC: M RAD 15:04 | PROVIDERS: ATTEND Family Medicine | DX: F17.211 Nicotine dependence, cigarettes, in remission (principal) ==

== ENCOUNTER → 2022-05-31 | Outpatient (REF) | LOC: M PLAIMG 09:39 | PROVIDERS: ATTEND Internal Medicine | DX: M19.072 Primary osteoarthritis, left ankle and foot (principal); M51.36 Other intervertebral disc degeneration, lumbar region; M51.37 Other intervertebral disc degeneration, lumbosacral region ==

== ENCOUNTER → 2023-01-04 | Outpatient (CLI) | payer BC ==
[2023-01-04 13:08] LABS: BASO # 0.1 10^3/uL (0.0-0.2); BASO % 0.8 % (0.0-1.0); EOS # 0.1 10^3/uL (0.0-0.5); HEMATOCRIT 41.4 % (36.0-47.0); HEMOGLOBIN 14.2 g/dl (12.0-15.5); LYMPH # 2.9 10^3/uL (1.5-5.0); LYMPH % 48.8 % (24.0-44.0); MEAN CORPUSCULAR HEMOGLOBIN 30.3 pg (27.0-33.0); MEAN CORPUSCULAR HGB CONC 34.3 g/dl (32.0-36.5); MEAN CORPUSCULAR VOLUME 88.5 fl (80.0-96.0); MONO # 0.5 10^3/uL (0.0-0.8); MONO % 7.7 % (2.0-8.0); NEUTROPHILS # 2.4 10^3/uL (1.5-8.5); NEUTROPHILS % 40.5 % (36.0-66.0); PLATELET COUNT, AUTOMATED 274 10^3/uL (150-450); RED BLOOD COUNT 4.68 10^6/uL (4.00-5.40)
[2023-01-04 13:38] LABS: FREE T4 1.26 NG/DL (0.89-1.76); THYROID STIMULATING HORMONE 3.732 uIU/ML (0.55-4.78)
[2023-01-04 13:39] LABS: ALBUMIN 4.5 G/DL (3.2-5.2); ALKALINE PHOSPHATASE 96 U/L (46-116); ALT/SGPT 31 U/L (7.0-40); AST/SGOT 23 U/L (<34); BILIRUBIN,TOTAL 0.4 MG/DL (0.3-1.2); BLOOD UREA NITROGEN 21 MG/DL (9-23); CALCIUM LEVEL 10.2 MG/DL (8.5-10.1); CARBON DIOXIDE LEVEL 29 MMOL/L (20-31); CHLORIDE LEVEL 100 MMOL/L (98-107); CHOLESTEROL LEVEL 213 MG/DL (<200); CHOLESTEROL RISK RATIO 3.82 (<5); CREATININE FOR GFR 0.81 MG/DL (0.55-1.30); GLOMERULAR FILTRATION RATE > 60.0 (>51); GLUCOSE, FASTING 87 MG/DL (60-100); HDL CHOLESTEROL 55.7 MG/DL (>40); LDL CHOLESTEROL 100.5 MG/DL (<100); NON-HDL-C 157 MG/DL; POTASSIUM SERUM 4.1 MMOL/L (3.5-5.1); SODIUM LEVEL 136 MMOL/L (136-145); TOTAL PROTEIN 7.6 G/DL (5.7-8.2); TRIGLYCERIDES LEVEL 284 MG/DL (<150)
== END ==
LOC: M PLALAB 11:00
PROVIDERS: ATTEND Physician Assistant
DX: E03.9 Hypothyroidism, unspecified (principal); E78.2 Mixed hyperlipidemia

== ENCOUNTER → 2023-01-09 | Outpatient (CLI) | payer BC | LOC: M PLAIMG 10:44 | PROVIDERS: ATTEND Physician Assistant | DX: M25.561 Pain in right knee (principal) ==

== ENCOUNTER → 2023-01-09 | Outpatient (REF) | LOC: M PLAIMG 10:42 | PROVIDERS: ATTEND Internal Medicine | DX: R52 Pain, unspecified (principal) ==

== ENCOUNTER → 2023-01-24 | Outpatient (CLI) | payer BC | LOC: M PLAIMG 10:59 | PROVIDERS: ATTEND Physician Assistant | DX: R93.89 Abnormal findings on diagnostic imaging of other specified body structures (principal) ==

== ENCOUNTER → 2023-02-12 | Outpatient (CLI) | payer BC | LOC: M WHC 15:07 | PROVIDERS: ATTEND Physician Assistant | DX: E04.1 Nontoxic single thyroid nodule (principal) ==

== ENCOUNTER → 2023-08-07 | Outpatient (CLI) | payer BC ==
[~2023-08-07] MED LIST changes: +FLUT50SP17; -FLUTISP
== END ==
LOC: M WHC 08:36
PROVIDERS: ATTEND Physician Assistant
DX: Z12.31 Encounter for screening mammogram for malignant neoplasm of breast (principal)

== ENCOUNTER → 2024-03-24 | Outpatient (CLI) | payer BC ==
[~2024-03-24] MED LIST changes: -FLUT50SP17; +FLUTISP
== END ==
LOC: M LAB 17:14
PROVIDERS: ATTEND Student in an Organized Health Care Education/Training Program
DX: Z11.9 Encounter for screening for infectious and parasitic diseases, unspecified (principal); W57.XXXA Bitten or stung by nonvenomous insect and other nonvenomous arthropods, initial encounter

== ENCOUNTER → 2024-03-24 | Outpatient (REF) | payer BC | LOC: M SFHCPLAZ 17:02 | PROVIDERS: ATTEND Student in an Organized Health Care Education/Training Program | DX: Z11.9 Encounter for screening for infectious and parasitic diseases, unspecified (principal); W57.XXXA Bitten or stung by nonvenomous insect and other nonvenomous arthropods, initial encounter; Z53.9 Procedure and treatment not carried out, unspecified reason ==

== ENCOUNTER → 2024-04-28 | Outpatient (CLI) | payer BC | LOC: M RAD 14:52 | PROVIDERS: ATTEND Physician Assistant | DX: F17.211 Nicotine dependence, cigarettes, in remission (principal) ==

== ENCOUNTER → 2024-06-16 | Outpatient (CLI) | payer BC ==
[2024-06-16 16:30] LABS: BASO # 0.1 10^3/uL (0.0-0.2); BASO % 0.7 % (0.0-1.0); EOS # 0.2 10^3/uL (0.0-0.5); EOS % 2.7 % (0.0-3.0); HEMATOCRIT 41.9 % (36.0-47.0); LYMPH # 2.7 10^3/uL (1.5-5.0); LYMPH % 40.8 % (24.0-44.0); MEAN CORPUSCULAR HGB CONC 33.4 g/dl (32.0-36.5); MEAN CORPUSCULAR VOLUME 89.7 fl (80.0-96.0); MONO # 0.6 10^3/uL (0.0-0.8); MONO % 8.6 % (2.0-8.0); NEUTROPHILS # 3.2 10^3/uL (1.5-8.5); NEUTROPHILS % 47.1 % (36.0-66.0); PLATELET COUNT, AUTOMATED 241 10^3/uL (150-450); RED BLOOD COUNT 4.67 10^6/uL (4.00-5.40); WHITE BLOOD COUNT 6.7 10^3/uL (4.0-10.0)
[2024-06-16 16:40] LABS: TOTAL IRON BINDING CAPACITY 362 UG/DL (250-425)
[2024-06-16 16:41] LABS: ALKALINE PHOSPHATASE 86 U/L (46-116); ALT/SGPT 31 U/L (7.0-40); AST/SGOT 16 U/L (<34); BILIRUBIN,TOTAL 0.3 MG/DL (0.3-1.2); BLOOD UREA NITROGEN 19 MG/DL (9-23); CALCIUM LEVEL 9.4 MG/DL (8.5-10.1); CARBON DIOXIDE LEVEL 28 MMOL/L (20-31); CHLORIDE LEVEL 108 MMOL/L (98-107); CHOLESTEROL LEVEL 195 MG/DL (<200); CHOLESTEROL RISK RATIO 4.17 (<5); CREATININE FOR GFR 0.77 MG/DL (0.55-1.30); GLOMERULAR FILTRATION RATE > 60.0 (>51); GLUCOSE, FASTING 84 MG/DL (60-100); HDL CHOLESTEROL 46.7 MG/DL (>40); IRON (FE) 81 UG/DL (50-170); LDL CHOLESTEROL 88.7 MG/DL (<100); NON-HDL-C 148.3 MG/DL; PERCENT SATURATION 22.4 % (13.2-45.0); POTASSIUM SERUM 4.2 MMOL/L (3.5-5.1); SODIUM LEVEL 141 MMOL/L (136-145); TRIGLYCERIDES LEVEL 298 MG/DL (<150)
[2024-06-16 16:42] LABS: FREE T4 1.31 NG/DL (0.89-1.76)
[2024-06-16 17:20] LABS: HEMOGLOBIN A1c 5.2 % (4.0-6.0)
== END ==
LOC: M PLALAB 10:13
PROVIDERS: ATTEND Physician Assistant
DX: Z01.89 Encounter for other specified special examinations (principal); E03.9 Hypothyroidism, unspecified; E78.2 Mixed hyperlipidemia; Z86.2 Personal history of diseases of the blood and blood-forming organs and certain disorders involving the immune mechanism; Z13.1 Encounter for screening for diabetes mellitus

== ENCOUNTER → 2024-08-21 | Outpatient (CLI) | payer BC | LOC: M RAD 17:09 | PROVIDERS: ATTEND Physician Assistant | DX: F17.211 Nicotine dependence, cigarettes, in remission (principal); Z53.9 Procedure and treatment not carried out, unspecified reason ==

== ENCOUNTER → 2024-09-15 | Outpatient (CLI) | payer BC ==
[~2024-09-15] MED LIST changes: +E-Z-GAS II EFFERVESCENT PACKET (SODIUM BICARB./CITRIC ACID/SIMETHICONE) As Ordered ONE; +E-Z-HD 98% w/w 340GM SUSP BTL As Ordered ONE; +E-Z-PAQUE 96% w/w SUSP 176GM BTL As Ordered ONE
== END ==
LOC: M RAD 07:33
PROVIDERS: ATTEND Physician Assistant
DX: R10.13 Epigastric pain (principal)

== ENCOUNTER → 2024-10-14 | Outpatient (CLI) | payer BC | LOC: M RAD 08:13 | PROVIDERS: ATTEND Physician Assistant | DX: R10.13 Epigastric pain (principal); K44.9 Diaphragmatic hernia without obstruction or gangrene ==

== ENCOUNTER → 2024-10-14 | Outpatient (CLI) | payer BC ==
[~2024-10-14] MED LIST changes: -E-Z-GAS II EFFERVESCENT PACKET (SODIUM BICARB./CITRIC ACID/SIMETHICONE) As Ordered ONE; -E-Z-HD 98% w/w 340GM SUSP BTL As Ordered ONE; -E-Z-PAQUE 96% w/w SUSP 176GM BTL As Ordered ONE
== END ==
LOC: M RAD 08:16
PROVIDERS: ATTEND Physician Assistant
DX: R10.13 Epigastric pain (principal); R10.11 Right upper quadrant pain

== ENCOUNTER → 2025-02-18 | Outpatient (CLI) | payer BC ==
[2025-02-18 10:19] LABS: HEMATOCRIT 41.8 % (36.0-47.0); HEMOGLOBIN 14.2 g/dl (12.0-15.5); MEAN CORPUSCULAR HEMOGLOBIN 30.2 pg (27.0-33.0); MEAN CORPUSCULAR VOLUME 88.9 fl (80.0-96.0); PLATELET COUNT, AUTOMATED 292 10^3/uL (150-450); WHITE BLOOD COUNT 5.5 10^3/uL (4.0-10.0)
[2025-02-18 10:43] LABS: ALBUMIN 4.1 G/DL (3.2-5.2); ALKALINE PHOSPHATASE 71 U/L (35-104); ALT/SGPT 41 U/L (7.0-40); AST/SGOT 22 U/L (<34); BILIRUBIN,TOTAL 0.3 MG/DL (0.3-1.2); BLOOD UREA NITROGEN 22 MG/DL (9-23); CALCIUM LEVEL 9.8 MG/DL (8.5-10.1); CARBON DIOXIDE LEVEL 27 MMOL/L (20-31); CHLORIDE LEVEL 104 MMOL/L (98-107); CREATININE FOR GFR 0.73 MG/DL (0.55-1.30); GLOMERULAR FILTRATION RATE > 60.0 (>51); GLUCOSE, FASTING 92 MG/DL (60-100); HEMOGLOBIN A1c 4.9 % (4.0-6.0); IRON (FE) 116 UG/DL (50-170); MAGNESIUM LEVEL 2.1 MG/DL (1.8-2.4); PERCENT SATURATION 30.4 % (13.2-45.0); POTASSIUM SERUM 4.3 MMOL/L (3.5-5.1); SODIUM LEVEL 140 MMOL/L (136-145); TOTAL IRON BINDING CAPACITY 381 UG/DL (250-425); TOTAL PROTEIN 7.5 G/DL (5.7-8.2)
[2025-02-18 10:44] LABS: FERRITIN 57.1 NG/ML (7.3-270.7); FOLATE 13.1 NG/ML (>5.4)
[2025-02-18 10:45] LABS: FREE T4 1.43 NG/DL (0.89-1.76); VITAMIN B12 LEVEL 676 PG/ML (211-911)
== END ==
LOC: M PLALAB 08:50
PROVIDERS: ATTEND Nurse Practitioner Family
DX: R00.2 Palpitations (principal); E03.9 Hypothyroidism, unspecified; Z86.2 Personal history of diseases of the blood and blood-forming organs and certain disorders involving the immune mechanism; R42 Dizziness and giddiness

== ENCOUNTER → 2025-03-13 | Outpatient (CLI) | payer BC ==
[~2025-03-13] MED LIST changes: +PROHANCE 279.3MG/ML 15ML VIAL As Ordered ONE
== END ==
LOC: M RAD 14:18
PROVIDERS: ATTEND Nurse Practitioner Family
DX: R42 Dizziness and giddiness (principal); M54.50 Low back pain, unspecified; M47.22 Other spondylosis with radiculopathy, cervical region; M48.02 Spinal stenosis, cervical region; M47.816 Spondylosis without myelopathy or radiculopathy, lumbar region; M48.061 Spinal stenosis, lumbar region without neurogenic claudication
CPT/HCPCS: 72156; 72158; A9576

== ENCOUNTER → 2025-08-07 | Outpatient (CLI) | payer BC ==
[~2025-08-07] MED LIST changes: -PROHANCE 279.3MG/ML 15ML VIAL As Ordered ONE
[2025-08-07 13:56] LABS: PLATELET COUNT, AUTOMATED 297 10^3/uL (150-450)
[2025-08-07 14:03] LABS: IRON (FE) 81.0 UG/DL (50-170); PERCENT SATURATION 22.6 % (13.2-45.0)
[2025-08-07 14:04] LABS: FREE T4 1.52 NG/DL (0.89-1.76)
== END ==
LOC: M PLALAB 09:57
PROVIDERS: ATTEND Nurse Practitioner Family
DX: E03.9 Hypothyroidism, unspecified (principal); Z86.2 Personal history of diseases of the blood and blood-forming organs and certain disorders involving the immune mechanism